=== PATIENT | male | born 1990 | race Caucasian/White ===

== ENCOUNTER 2020-07-31 05:04 | Emergency (ER) | payer SELFPAY ==
[~2020-07-31] VITALS: Ht 188 cm; Wt 108.9 kg
--- NOTE | 2020-07-31 05:05 | NUR ---
TO ER BED 9 BIB EMS C/O SEIZURE WITNESSED BY GIRLFRIEND. NOTED L EYEBROW CONTUSION. NO ORAL TRAUMA NOTED, NO URINARY INCONTINENCE NOTED. PT AAOX2 NO ACUTE DISTRESS NOTED, RESP EVEN AND UNLABORED. PLACE PT ON CARDIAC MONITORING, CONTINUOUS POX. ER MD AT [facility] TO EVAL PT WITH ORDERS RECEIVED. WILL CARRY OUT ORDERS.
--- NOTE | 2020-07-31 05:20 | NUR ---
PT TRANSPORTED TO RADIOLOGY FOR CT ABD/PELVIS.
[2020-07-31 05:24] LABS: BASOPHILS # (AUTO) 0.1 /CMM (0.0-0.2); BASOPHILS % (AUTO) 0.8 % (0.0-2.0); EOSINOPHILS % (AUTO) 2.5 % (0.0-6.0); HEMATOCRIT 47 % (39-51); HEMOGLOBIN 15.5 g/dL (13.5-17.5); LYMPHOCYTES # (AUTO) 3.6 /CMM (0.8-4.8); LYMPHOCYTES % (AUTO) 38.5 % (20.0-44.0); MEAN CORPUSCULAR HGB CONC 33 g/dl (31.0-36.0); MEAN CORPUSCULAR VOLUME 93 fL (80-96); MONOCYTES # (AUTO) 0.5 /CMM (0.1-1.30); MONOCYTES % (AUTO) 5.6 % (2.0-12.0); NEUTROPHILS # (AUTO) 4.9 /CMM (1.8-8.9); NEUTROPHILS % (AUTO) 52.6 % (43.0-81.0); PLATELET COUNT (AUTO) 225 /CMM (150-450); RED BLOOD CELL COUNT(AUTO) 5.01 MIL/uL (4.5-6.0); WHITE BLOOD COUNT (AUTO) 9.3 K/uL (4.3-11.0)
--- NOTE | 2020-07-31 05:32 | NUR ---
PT BACK FROM RADIOLOGY. PENDING CT RESULT
[2020-07-31 05:42] LABS: ALANINE AMINOTRANSFERASE 22 U/L (12-78); ALBUMIN 3.9 g/dL (3.4-5.0); ALKALINE PHOSPHATASE 68 U/L (46-116); ASPARTATE AMINOTRANSFERASE 18 U/L (15-37); BILIRUBIN,DIRECT 0.1 mg/dL (0.0-0.2); BILIRUBIN,TOTAL 0.4 mg/dL (0.2-1.0); CALCIUM, SERUM 8.9 mg/dL (8.5-10.1); CARBON DIOXIDE 17 mmol/L (21-32); CHLORIDE 102 mmol/L (98-107); CREATININE 1.2 mg/dL (0.6-1.3); GLUCOSE 141 mg/dL (74-106); POTASSIUM 3.8 mmol/L (3.5-5.1); SODIUM SERUM 139 mmol/L (136-145); TOTAL PROTEIN, SERUM 7.7 g/dL (6.4-8.2); UREA NITROGEN, BLOOD 13 mg/dL (7-18)
[2020-07-31 05:56] LABS: ALCOHOL, BLOOD < 3 mg/dL (0-0)
--- NOTE | 2020-07-31 06:10 | NUR ---
girlfriend- Shanell Terrell [phone]
--- NOTE | 2020-07-31 06:28 | NUR ---
PT AAOX4, UNABLE TO RECALL WHAT HAPPENED. PT DENIES HX. OF SEIZURE, DENIES DRUG USE OR ALCOHOL USE. PT ADMITS TO MARIJUANA USE. NO ACUTE DISTRESS NOTED, RESP EVEN AND UNLABORED. PENDING ER MD HACKETT.
--- NOTE | 2020-07-31 07:35 | NUR ---
report given to am shift UYEN Hargrove.
--- NOTE | 2020-07-31 08:24 | NUR ---
Patient discharged to home in stable condition. Written and verbal after care instructions given. Patient verbalizes understanding of instruction. IV removed. Catheter intact and site benign. Pressure and 4x4 applied to site. No bleeding noted.
[2020-07-31 08:26] VITALS: BP 124/62
--- NOTE | 2020-07-31 09:09 | NUR ---
FAXED [facility] [employer] [facility] [phone]. ABOUT THE NEW ONSET OF ACTIVITY.
== END 2020-07-31 08:26 | disposition home or self-care (01) ==
LOC: ER 05:04
DX: R56.9 Unspecified convulsions (principal)
CPT/HCPCS: 36415; 70450-TC; 80048-TC; 80076-TC; 82962-TC; 85025-TC; G0480

== ENCOUNTER 2022-05-13 14:14 | Emergency (ER) | payer SELFPAY ==
[~2022-05-13] VITALS: Ht 188 cm; Wt 106.6 kg
[2022-05-13 14:22] VITALS: BP 124/90
[2022-05-13] MEDS ORDERED: IBUP-1955 PO (15:18)
--- NOTE | 2022-05-13 15:27 | NUR ---
Patient discharged to home in stable condition. Written and verbal after care instructions given. Patient verbalizes understanding of instruction.
== END 2022-05-13 15:33 | disposition home or self-care (01) ==
LOC: ER 14:17
DX: S90.31XA Contusion of right foot, initial encounter (principal); W05.1XXA Fall from non-moving nonmotorized scooter, initial encounter; Y93.89 Activity, other specified; Y92.89 Other specified places as the place of occurrence of the external cause; Y99.8 Other external cause status
CPT/HCPCS: 73630-TC